=== PATIENT | female | born 1975 | race Hispanic/Latino ===

== ENCOUNTER 2018-12-24 14:16 | Emergency (ER) | payer MEDICARE ==
[~2018-12-24 14:16] MED LIST: CLON0.5T23 PO; GABA600T10 PO; HYDR25TA PO; METO-296 PO; OMEP40CA13 PO; QUET100T PO; QUET100T70 PO; QUET50TA55 PO; VENL75 PO
[2018-12-24] MEDS ORDERED: LIDOCAINE 5% TOPICAL PATCH TP ONE (14:38)
[2018-12-24] MEDS ORDERED: CYCLOBENZAPRINE HCL 10 MG TABLET ONE (14:38)
== END 2018-12-24 15:49 | disposition home or self-care (01) ==
LOC: EDH 14:16
DX: M51.86 Other intervertebral disc disorders, lumbar region (principal); M54.16 Radiculopathy, lumbar region; F41.9 Anxiety disorder, unspecified; F31.9 Bipolar disorder, unspecified; Z88.8 Allergy status to other drugs, medicaments and biological substances
CPT/HCPCS: 72131

== ENCOUNTER 2021-08-12 12:25 | Observation (INO) | payer MEDICARE ==
[~2021-08-12] VITALS: Ht 160 cm; Wt 100.2 kg
[~2021-08-12 12:25] MED LIST changes: -OMEP40CA13 PO; +OMEP40CA21 PO; +QUET100T34 PO; -QUET100T70 PO; +QUET50TA24 PO; -QUET50TA55 PO
[2021-08-12 13:36] LABS: BASOPHILS % (AUTO) 0.4 % (0.0-5.0); EOSINOPHILS % (AUTO) 1.7 % (0.0-8.0); HEMATOCRIT 41.7 % (36-48); MEAN CORPUSCULAR HGB CONC 31.9 g/dL (32.0-36.0); MEAN CORPUSCULAR VOLUME 87.8 fL (79-99); MONOCYTES % (AUTO) 5.4 % (3.0-13.0); NEUTROPHILS % (AUTO) 67.9 % (40.0-77.0); PLATELET COUNT (AUTO) 275 K/uL (130-400); RED BLOOD CELL COUNT(AUTO) 4.75 MIL/uL (4.00-5.50); RED CELL DISTRIBUTION WIDTH 13.9 % (11.0-15.5)
[2021-08-12 13:43] LABS: APPEARANCE,URINE CLEAR (CLEAR); BILIRUBIN,URINE SMALL (NEGATIVE); COLOR,URINE AMBER (YELLOW); GLUCOSE, URINE (UA) NEGATIVE (NEGATIVE); KETONES,URINE >=80 mg/dL (NEGATIVE); LEUKOCYTE ESTERASE ,URINE NEGATIVE (NEGATIVE); NITRATE,URINE NEGATIVE (NEGATIVE); OCCULT BLOOD,URINE NEGATIVE (NEGATIVE); PROTEIN,URINE TRACE mg/dL (NEGATIVE)
[2021-08-12 13:46] LABS: CARBON DIOXIDE 26 mmol/L (21-32); CHLORIDE 104 mmol/L (101-111); CREATININE 0.9 mg/dL (0.5-1.5); GLOMERULAR FILTR. RATE CALC 72 mL/min (>60); GLUCOSE,RANDOM 301 mg/dL (70-105); POTASSIUM 4.1 mmol/L (3.5-5.1); SODIUM SERUM 138 mmol/L (136-145); UREA NITROGEN, BLOOD 9 mg/dL (7-18)
[2021-08-12 13:46] LABS: HCG,QUAL RESULT NEGATIVE (NEGATIVE)
[2021-08-12 13:50] LABS: ALANINE AMINOTRANSFERASE 63 U/L (12-78); ALBUMIN 3.3 g/dL (3.5-5.0); ASPARTATE AMINOTRANSFERASE 34 U/L (10-37); BILIRUBIN,TOTAL 0.3 mg/dL (0.2-1.0); TOTAL PROTEIN, SERUM 6.8 g/dL (6.0-8.3)
[2021-08-12 13:52] LABS: BACTERIA,URINE Moderate /HPF (None Seen); RBC,URINE 0-1 /HPF (0-1); WBC,URINE 0-1 /HPF (0-1)
[2021-08-12 13:53] LABS: CRP QUANTITATIVE < 2.00 mg/L (0.00-9.0)
[2021-08-12] MEDS ORDERED: CEFTRIAXONE 1G VIAL IVP ONE (14:30)
[2021-08-12] MEDS ORDERED: INSULIN HUMULIN R 100 UNIT/ML 3ML IV ONE (14:30)
[2021-08-12] MEDS ORDERED: 0.9%NACL 1000ML 1,000 ML IV SCH (14:30)
[2021-08-12] MEDS ORDERED: ACETAMINOPHEN 325 MG TAB PO PRN (15:30)
[2021-08-12] MEDS ORDERED: DEXTROSE 50%-WATER 50 ML DISP.SYRIN IV ONE ×2 (16:22→16:30)
[2021-08-12] MEDS: INSULIN HUMULIN R 100 UNIT/ML 3ML SQ SCH ×2 (16:30→21:00)
[2021-08-12 21:00] VITALS: BP 120/85
[2021-08-12] MEDS ORDERED: MAGNESIUM 2GM PREMIX 50ML 50 ML IV PRN (21:00)
[2021-08-12] MEDS ORDERED: VIT D3 PO (21:47)
[2021-08-12] MEDS ORDERED: GABA800T9 PO (21:47)
[2021-08-12] MEDS ORDERED: DULO60CA64 PO (21:48)
[2021-08-12] MEDS ORDERED: DEXT25CA PO (21:54)
[2021-08-12] MEDS ORDERED: DEXT30CA6 PO (21:54)
[2021-08-12] MEDS ORDERED: LITH300C3 PO (21:56)
[2021-08-12] MEDS ORDERED: CYCL-309 PO (21:57)
[2021-08-12] MEDS ORDERED: CLON2TAB11 PO (21:58)
[2021-08-12] MEDS ORDERED: LEVO100 PO (21:59)
[2021-08-12] MEDS ORDERED: CLONAZEPAM 2 MG TABLET PO PRN (23:00)
[2021-08-13] VITALS (12 sets, daily range): BP systolic 95–128; BP diastolic 55–77
[2021-08-13] MEDS: 0.9%NACL 1000ML 1,000 ML IV SCH ×2 (00:30→10:00)
[2021-08-13 05:42] LABS: BASOPHILS % (AUTO) 0.5 % (0.0-5.0); EOSINOPHILS % (AUTO) 3.6 % (0.0-8.0); HEMATOCRIT 33.4 % (36-48); LYMPHOCYTES % (AUTO) 31.3 % (21.0-51.0); MEAN CORPUSCULAR HEMOGLOBIN 28.2 pg (27.0-33.0); MEAN CORPUSCULAR HGB CONC 32.3 g/dL (32.0-36.0); MEAN CORPUSCULAR VOLUME 87.2 fL (79-99); MONOCYTES % (AUTO) 9.4 % (3.0-13.0); NEUTROPHILS % (AUTO) 54.9 % (40.0-77.0); PLATELET COUNT (AUTO) 207 K/uL (130-400); RED BLOOD CELL COUNT(AUTO) 3.83 MIL/uL (4.00-5.50); WHITE BLOOD COUNT (AUTO) 6.2 K/uL (4.8-10.8)
[2021-08-13] MEDS: INSULIN HUMULIN R 100 UNIT/ML 3ML SQ SCH ×5 (05:51→12:00)
[2021-08-13 06:28] LABS: CREATININE 0.5 mg/dL (0.5-1.5); MAGNESIUM 2.2 mg/dL (1.80-2.40); PHOSPHORUS 2.9 mg/dL (2.5-4.9); POTASSIUM 3.5 mmol/L (3.5-5.1); THYROID STIMULATING HORMONE 0.03 uIU/mL (0.36-3.74)
[2021-08-13] MEDS ORDERED: LEVOTHYROXINE 100 MCG TABLET PO SCH (07:30)
[2021-08-13] MEDS: GABAPENTIN 300 MG CAPSULE PO SCH ×2 (09:00→12:52)
[2021-08-13] MEDS ORDERED: DULOXETINE HCL 30 MG CAP PO SCH (09:00)
[2021-08-13] MEDS: GABAPENTIN 100 MG CAPSULE PO SCH ×2 (09:00→12:52)
[2021-08-13] MEDS: LITHIUM CARBONATE 150 MG CAPSULE PO SCH ×2 (09:00→12:54)
[2021-08-13] MEDS: PANTOPRAZOLE 40 MG TAB DR PO SCH ×2 (09:00→12:55)
[2021-08-13] MEDS ORDERED: **HM** VIT D3 125MCG PO SCH (09:00)
[2021-08-13] MEDS ORDERED: PROPOFOL 10 MG/ML 20ML VIAL IV ONE (11:35)
[2021-08-13] MEDS ORDERED: LIDOCAINE PF 100MG/5ML (2%) SYRINGE 5ML ONE (11:36)
[2021-08-13] MEDS ORDERED: DEXTROSE 50%-WATER 50 ML DISP.SYRIN IV ONE (13:09)
[2021-08-13] MEDS ORDERED: CYCLOBENZAPRINE HCL 10 MG TABLET PO SCH (21:00)
== END 2021-08-13 15:20 | disposition home or self-care (01) ==
LOC: EDH 12:25 → EDHIP 15:18 → 3AH 21:00
PROVIDERS: ADMIT Internal Medicine Pulmonary Disease; ATTEND Internal Medicine Pulmonary Disease
DX: E86.0 Dehydration (principal); Z20.822 Contact with and (suspected) exposure to COVID-19; E46 Unspecified protein-calorie malnutrition; E11.65 Type 2 diabetes mellitus with hyperglycemia; N39.0 Urinary tract infection, site not specified; R13.10 Dysphagia, unspecified; F41.9 Anxiety disorder, unspecified; F32.9 Major depressive disorder, single episode, unspecified; R53.1 Weakness; G54.0 Brachial plexus disorders; Z79.899 Other long term (current) drug therapy; Z68.39 Body mass index [BMI] 39.0-39.9, adult; Z98.84 Bariatric surgery status; Z98.890 Other specified postprocedural states
CPT/HCPCS: 36415 ×2; 43235; 71045; 80048; 80053; 81001; 81025; 82948 ×5; 83735 ×2; 84100; 84145; 84443; 84484; 85025 ×2; 86140; 86850; 86900; 86901; 87088; 87635; 93005; 96361 ×2; 96365; 96366; 96375; 96376; 99285; A4215; A4222; A4223; A4606; A4620; G0378 ×22; J0696; J1815; J2001; J2704; J3475; J7030 ×3; J7070 ×2